=== PATIENT | male | born 1995 ===

== ENCOUNTER → 2019-05-27 10:41 | Day surgery (SDC) | payer OTHER ==
--- NOTE | 2019-05-24 16:52 | HP ---
CC: Dr. Fannie Garcia, [facility] * ADMITTING HISTORY AND PHYSICAL: DATE OF ADMISSION: 05/27/19 ADMITTING DIAGNOSES: 1. Calculus, left proximal ureter. 2. Left hydronephrosis. PLANNED PROCEDURE: Left stent insertion and shockwave lithotripsy of calculus left ureter. SURGEON: Dr. Cobb. HISTORY OF PRESENT ILLNESS: Rodney Hoffman is a 24-year-old [employer] student with a history of recurrent renal calculi. Three to four days ago, he had sudden onset of left flank pain, which has been episodic since then. He denies any nausea, vomiting, fever, or chills. PAST MEDICAL HISTORY: Significant for left renal calculi in 2017. PAST SURGICAL HISTORY: Significant for left stent insertion and ureteroscopy in 2017. MEDICATIONS ON ADMISSION: None. ALLERGIES: No known drug allergies. FAMILY HISTORY: His brother has a history of kidney stones. SOCIAL HISTORY: Smoking history: He is a nonsmoker. REVIEW OF SYSTEMS: He is otherwise in excellent health. There is no history of diabetes mellitus or any other major systemic illness. PHYSICAL EXAMINATION GENERAL: Reveals a pleasant, healthy-appearing young gentleman. VITAL SIGNS: Blood pressure is 100/70, pulse 95 per minute and regular, temperature 98.2, oxygen saturation 96% on room air. LUNGS: Clear bilaterally. CARDIOVASCULAR: Regular rate and rhythm. S1, S2. ABDOMEN: Soft with very mild left flank tenderness. IMPRESSION AND PLAN: He had a CT scan done, which revealed a 7 to 8 mm calculus in the left proximal ureter with moderate left hydronephrosis. I had a detailed discussion with Rodney regarding the findings of the calculus and the management options. Plan is for left stent insertion and shockwave lithotripsy of calculus, left ureter. [id number]/[facility] #: [id number] MTDD
[~2019-05-27 10:41] MED LIST: Buffered Lidocaine 1% SYRIN* 1 ML/SYRINGE INTRADERM ONE; Dexamethasone IV* 4 MG/ML 1 ML (4 MG) IV SLOW PU ONE; Dexamethasone IV* 4 MG/ML 1 ML (4 MG) ONE; DiMENhydriNATE IV* 50 MG/ML VIAL IV PUSH PRN; Famotidine IV* 10 MG/ML 2 ML (20 mg) IV ONE; Famotidine IV* 10 MG/ML 2 ML (20 mg) ONE; Iohexol 180 (CONTRAST) 10 ML SDV IV ONE; Lactated Ringers 1000 ML Bag* 1,000 ML IV SCH; Lidocaine 2% PF * 5 ML VIAL ONE; Midazolam* 1 MG/ML 5 ML VIAL (5 MG) ONE; Naloxone* 0.4 MG/ML 1 ML VIAL IV PRN; Ondansetron INJ* 2 MG/ML VIAL IV PRN; Ondansetron INJ* 2 MG/ML VIAL ONE; Propofol* 10 MG/ML 20 ML BTL ONE; Scopolamine 1.5 mg* PATCH TRANSDERM PRN; cefTRIAXone(*) 2 GM ADDV.VIAL IVPB ONE; fentaNYL* 50 MCG/ML 2 ML VIAL (100 MCG VIAL) IV PRN; fentaNYL* 50 MCG/ML 2 ML VIAL (100 MCG VIAL) ONE; oxyCODONE/Acetamin 5/325 MG* TAB PO PRN
[2019-05-27 13:46] VITALS: BP 116/83
--- NOTE | 2019-05-27 23:28 | OP ---
CC: Dr. Fannie Garcia, [facility] * DATE OF OPERATION: 05/27/19 - [facility] DATE OF : 89 SURGEON: Tarun Cobb MD. ANESTHESIOLOGIST: Dr. Del Cid. ANESTHESIA: General. PRE-OP DIAGNOSES: 1. Obstructing calculus, left proximal ureter. 2. Left renal calculus. 3. Left hydronephrosis. POST-OP DIAGNOSES: 1. Obstructing calculus, left proximal ureter. 2. Left renal calculus. 3. Left hydronephrosis. OPERATIVE PROCEDURES: 1. Shockwave lithotripsy of calculus, left ureter. 2. Shockwave lithotripsy of left renal calculus. 3. Cystoscopy, left retrograde, and left stent insertion. COMPLICATIONS: None. STENT USED: 6-Tajik stent, left ureter. INDICATIONS: Rodney Hoffman is a 24-year-old [employer] student with a history of recurrent renal calculi. He was evaluated for an approximately 7 to 8 mm calculus in the left proximal ureter with left hydronephrosis and additional small bilateral renal calculi. OPERATIVE FINDINGS: 1. Left hydronephrosis secondary to calculus, left proximal ureter (difficult to see on initial KUB, but visualized on fluoroscopy). 2. Small left renal calculus. POSTOPERATIVE CONDITION: Stable. DESCRIPTION OF PROCEDURE: After induction of general anesthesia, the patient was placed on the lithotripsy table in the supine position. The calculus in the proximal left ureter was visualized on fluoroscopy. Shockwave lithotripsy was commenced at a rate of 90 shocks per minute. Periodic imaging revealed good localization and fragmentation, and a total of 3000 shocks were administered to this calculus. The patient was placed in the dorsal lithotomy position and cystoscopy was performed. Retrograde pyelogram revealed left hydronephrosis and a 6-Tajik stent was introduced and positioned under fluoroscopy with good proximal and distal positioning obtained. The bladder was emptied at the end of the procedure. Next, the patient was placed back in the supine position and now the small calculus in the midpole of the left kidney could be visualized adjacent to the stent. Shockwave lithotripsy was carried out for this small calculus for a total of 300 shocks. The patient tolerated the procedure satisfactorily and was transferred back to the recovery area in stable condition. The plan is to leave the stent in for 8 to 10 days to allow for passive dilatation of the ureter and then he will be scheduled for stent removal in the office next week. [id number]/[facility] #: [id number] DANIELLE
== END | disposition home or self-care (01) ==
LOC: OR 10:41
PROVIDERS: ATTEND Urology
DX: N13.2 Hydronephrosis with renal and ureteral calculous obstruction (principal)
CPT/HCPCS: 74018; C1876; J0696; J1100; J2250; J2405; J2704; J3010